=== PATIENT | female | born 1980 | race African-American/Black ===

== ENCOUNTER 2021-10-17 15:47 | Emergency (ER) | payer MEDICAID ==
[~2021-10-17] VITALS: Ht 165.1 cm; Wt 84.0 kg
[2021-10-17] MEDS ORDERED: LORAZEPAM 1MG TABLET PO ONE (16:30)
[2021-10-17] MEDS ORDERED: LORAZEPAM 2MG/ML CPJ IM PRN (17:00)
[2021-10-17] MEDS ORDERED: LORAZEPAM 2MG/ML CPJ ONE (17:00)
[2021-10-17] MEDS ORDERED: ZIPRASIDONE MESYLATE 20MG/VIAL IM ONE (17:00)
[2021-10-17 20:01] VITALS: BP 115/67
== END 2021-10-17 20:06 | disposition home or self-care (01) ==
LOC: ER 15:47
DX: F23 Brief psychotic disorder (principal); F15.10 Other stimulant abuse, uncomplicated; F41.9 Anxiety disorder, unspecified
CPT/HCPCS: 93005; 96372; 99284; J2060; J3486; A4315

== ENCOUNTER 2021-10-30 20:51 | Emergency (ER) | payer MEDICAID ==
[~2021-10-30] VITALS: Ht 175.3 cm; Wt 73.0 kg
[2021-10-30 20:57] VITALS: BP 124/84
[2021-10-30] MEDS ORDERED: KETOROLAC 60MG/2ML VIAL IM ONE (21:45)
[2021-10-30] MEDS ORDERED: HYDR-4001 MT (22:46)
== END 2021-10-30 22:47 | disposition home or self-care (01) ==
LOC: ER 20:51
DX: S89.82XA Other specified injuries of left lower leg, initial encounter (principal); F15.10 Other stimulant abuse, uncomplicated; V49.59XA Passenger injured in collision with other motor vehicles in traffic accident, initial encounter; Y93.89 Activity, other specified; Y92.89 Other specified places as the place of occurrence of the external cause; Y99.8 Other external cause status
CPT/HCPCS: 73552; 73562; 96372; 99284; J1885

== ENCOUNTER 2023-11-20 10:32 | Emergency (ER) | payer MEDICAID ==
[~2023-11-20] VITALS: Ht 175.3 cm; Wt 82.0 kg
[~2023-11-20 10:32] MED LIST: HYDR-4001 MT
[2023-11-20 10:39] VITALS: O2SAT 100
[2023-11-20 12:22] LABS: BASOPHILS % 0.2 % (0.0-2.0); DIFFERENTIAL COMMENT 0; EOSINOPHILS % 0.3 % (0.0-5.0); HEMATOCRIT. 48.3 % (36.0-48.0); HEMOGLOBIN. 15.6 g/dL (12.0-16.0); LYMPHOCYTES % 13.6 % (20.0-50.0); MEAN CORPUSCULAR HEMOGLOBIN 24.9 pg (28.0-32.0); MEAN CORPUSCULAR HGB CONC 32.4 g/dL (31.0-37.0); MEAN CORPUSCULAR VOLUME 76.7 fL (81.0-99.0); MEAN PLATELET VOLUME 7.8 fl (7.4-10.4); MONOCYTES % 4.2 % (2.0-8.0); NEUTROPHILS % 81.7 % (40.0-76.0); PLATELET 279 x1000/uL (130-400); RED BLOOD CELL COUNT 6.29 mill/uL (4.2-5.4); WHITE BLOOD COUNT 11.9 x1000/uL (4.5-11.0)
[2023-11-20 12:41] LABS: ALANINE AMINOTRANSFERASE 24 IU/L (10-49); ALBUMIN 4.7 g/dL (3.2-4.8); ASPARTATE AMINOTRANSFERASE 20 IU/L (<34); BILIRUBIN TOTAL 0.6 mg/dL (0.1-1.0); CARBON DIOXIDE 22 mEq/L (21-32); CHLORIDE 103 mEq/L (98-107); GLUCOSE 93 mg/dL (70-105); POTASSIUM 3.8 mEq/L (3.5-5.1); SODIUM 136 mEq/L (136-145); UREA NITROGEN BLOOD 12 mg/dL (9-23)
[2023-11-20 13:11] LABS: HCG SCREEN NEGATIVE
[2023-11-20] MEDS ORDERED: MAGNESIUM/ALUMINUM HYDROXIDE/SIMETHICONE 30ML UDC PO STA (14:08)
[2023-11-20] MEDS ORDERED: ONDANSETRON 4MG ODT PO STA (14:08)
[2023-11-20] MEDS ORDERED: DICYCLOMINE 10 MG/5 ML ORAL SYR PO STA (14:08)
[2023-11-20] MEDS ORDERED: IBUP-2029 MT (14:15)
[2023-11-20] MEDS ORDERED: KETOROLAC 30MG/ML VIAL IM ONE (14:15)
[2023-11-20 15:53] VITALS: TEMP 97.6
[2023-11-20] MEDS ORDERED: KETOROLAC 30MG/ML VIAL IM NR (16:00)
[2023-11-20] MEDS ORDERED: MAGNESIUM/ALUMINUM HYDROXIDE/SIMETHICONE 30ML UDC PO NR (16:00)
[2023-11-20] MEDS ORDERED: ONDANSETRON 4MG ODT PO NR (16:00)
[2023-11-20 16:03] VITALS: BP 109/80; PULSE 60; RESP 16
== END 2023-11-20 16:04 | disposition home or self-care (01) ==
LOC: ER 10:32
DX: K80.20 Calculus of gallbladder without cholecystitis without obstruction (principal); F15.10 Other stimulant abuse, uncomplicated
CPT/HCPCS: 80053; 84703; 83690; 85025; 36415; 76700; 93005; 96372; 99285; Q0162; J1885; Z7610

== ENCOUNTER 2025-04-13 14:39 | Emergency (ER) | payer MEDICAID ==
[~2025-04-13] VITALS: Ht 175.3 cm; Wt 82.0 kg
[~2025-04-13 14:39] MED LIST changes: +IBUP-2029 MT
[2025-04-13 14:47] VITALS: BP 152/90; PULSE 82; RESP 16; TEMP 37.2; O2SAT 96
== END 2025-04-13 16:46 | disposition left against medical advice (07) ==
LOC: ER 14:39
DX: Z00.8 Encounter for other general examination (principal); Z53.21 Procedure and treatment not carried out due to patient leaving prior to being seen by health care provider